=== PATIENT | female | born 1985 | race Caucasian/White ===

== ENCOUNTER 2022-01-20 12:55 | Emergency (ER) | payer BC, SELFPAY ==
[2022-01-20 13:11] VITALS: BP 140/83; PULSE 90; RESP 18; TEMP 36.9; O2SAT 99
--- NOTE | 2022-01-20 13:26 | ED.GENADULT ---
HPI - General Adult General Chief complaint: Ear Stated complaint: Ear Pain History of Present Illness HPI narrative: Patient is a 36-year-old who presents to the [facility] via POV for evaluation of left ear pain that began 2 days ago. Left ear clicking began 3 weeks ago however ear pain prompted today's visit. Denies taking OTC meds for symptoms. Nothing improves or worsen symptoms. Related Data Home Medications Medication Instructions Recorded Confirmed clindamycin HCl 300 mg capsule 300 mg DAILY 01/20/22 01/20/22 Allergies Allergy/AdvReac Type Severity Reaction Status Date / Time No Known Allergies Allergy Verified 01/20/22 13:16 Review of Systems Review of Systems: Pertinent negatives fever, chills, sweats, change in appetite, poor p.o. intake, malaise, headache, rhinorrhea, sinus problems, tinnitus, vertigo, lightheadedness, hearing loss, muffled hearing, ear drainage, nausea, vomiting, sore throat, cough, shortness of breath, lymphadenopathy, chest pain, heart palpitations, and heart murmur. PMFSH Comments I have reviewed and agree with the patient's past medical, surgical, social, and family hx as documented by the RN. There is no relevant family history pertinent to the presenting complaint. Exam Narrative: GENERAL: Well-appearing, well-nourished, and in no acute distress. HEAD: Normocephalic, atraumatic. No sinus tenderness or facial swelling appreciated. EYES: PERRLA and EOMI. No evidence of erythema, swelling, or drainage. ENT: Bilateral external ears and ear canals normal. Left TM with marked erythema. Right TM normal. No TM perforation. Nares clear, no rhinorrhea or epistaxis. Bilateral turbinates without erythema/ swelling. Mucous membranes moist and pink. Uvula is midline without erythema and swelling. Breath odor and voice normal. NECK: Supple. No Lymphadenopathy or nuchal rigidity appreciated. CHEST: Bilateral lung toney are clear to auscultation. No respiratory distress. No evidence of cough or pleuritic cp upon examination. HEART: Regular rate and rhythm. No murmur, gallop, or rub heard. EXTREMITIES: Normal range of motion. No edema. SKIN: Warm, dry, no rash. NEURO: No focal deficits. Alert and oriented x3. Course Course Level of Care: Express Care Visit Vital Signs Vital signs: Vital Signs Temperature 98.5 F 01/20/22 13:11 Pulse Rate 90 01/20/22 13:11 Respiratory Rate 18 01/20/22 13:11 Blood Pressure 140/83 01/20/22 13:11 Pulse Oximetry 99 01/20/22 13:11 Oxygen Delivery Room Air 01/20/22 13:11 Temperature 98.5 F 01/20/22 13:11 Pulse Rate 90 01/20/22 13:11 Respiratory Rate 18 01/20/22 13:11 Blood Pressure 140/83 01/20/22 13:11 Pulse Oximetry 99 01/20/22 13:11 Oxygen Delivery Room Air 01/20/22 13:11 Medical Decision Making Differential Diagnosis Differential Diagnosis: Otitis externa, barotrauma, eustachian tube dysfunction, AOM, OME, herpes zoster infection, acute mastoiditis, malignancy Vital Signs Vital Signs: Vital Signs Temperature 98.5 F 01/20/22 13:11 Pulse Rate 90 01/20/22 13:11 Respiratory Rate 18 01/20/22 13:11 Blood Pressure 140/83 01/20/22 13:11 Pulse Oximetry 99 01/20/22 13:11 Oxygen Delivery Room Air 01/20/22 13:11 Temperature 98.5 F 01/20/22 13:11 Pulse Rate 90 01/20/22 13:11 Respiratory Rate 18 01/20/22 13:11 Blood Pressure 140/83 01/20/22 13:11 Pulse Oximetry 99 01/20/22 13:11 Oxygen Delivery Room Air 01/20/22 13:11 Reviewed Critical Care Time Critical Care Time Critical Care Time: No Discharge Plan Discharge Clinical Impression: Otitis media Patient Disposition: Home, Self-Care Condition: Stable Instructions: Antibiotic Form, Ear Infection (ED) Additional Instructions: See discharge instructions for detailed information. BE SURE TO START THE CLINDAMYCIN PRESCRIBED BY YOUR PROVIDER THIS WILL TREAT YOUR EAR INFECTION
== END 2022-01-20 14:15 | disposition home or self-care (01) ==
PROVIDERS: Emergency Provider Nurse Practitioner Family; PCP Family Medicine Adolescent Medicine
DX: H66.92 Otitis media, unspecified, left ear (principal); H61.22 Impacted cerumen, left ear
CPT/HCPCS: 69209; 99212; A9270; G0463

== ENCOUNTER → 2023-01-20 08:48 | Outpatient (CLI) | payer BC, SELFPAY ==
--- NOTE | ~2023-01-20 | US_ITS ---
EXAMINATION: US pelvic complete DATE: 01/20/2023 09:19 INDICATION: Left lower quadrant abdominal pain. TECHNIQUE: Multiple transabdominal and transvaginal sonographic images of the pelvis were obtained. COMPARISON: None. FINDINGS: TRANSABDOMINAL ULTRASOUND: The uterus measures 7.7 x 3.6 x 4.5 cm. There is no free fluid in the pelvis. TRANSVAGINAL ULTRASOUND: The endometrial complex measures 6 mm in thickness. The right ovary measures 2.6 x 1.7 x 3.3 cm. The left ovary measures 2.5 x 1.8 x 3.2 cm. There is normal vascular flow in the ovaries. IMPRESSION: 1. Normal pelvis. Reviewed, dictated and finalized at location A. IMPRESSION: 1. Normal pelvis.
== END ==
PROVIDERS: PCP Family Medicine Adolescent Medicine; Visit Provider Advanced Practice Midwife
DX: R10.32 Left lower quadrant pain (principal)
CPT/HCPCS: 76856

== ENCOUNTER → 2023-08-06 10:18 | Outpatient (CLI) | payer BC, SELFPAY ==
--- NOTE | ~2023-08-06 | MM_ITS ---
EXAMINATION: MM screening caitie BI w vicky HISTORY: Screening mammogram; baseline examination. TECHNIQUE: Craniocaudal and mediolateral oblique 3-D tomosynthesis images were obtained and synthetic 2-D images were generated. Bilateral rotated lateral CC views. CAD analysis was submitted and interp reted. COMPARISON: No prior mammogram is available for comparison at this institution. BREAST PARENCHYMAL COMPOSITION: The breasts are heterogeneously dense, which may obscure small masses . FINDINGS: There is no evidence of suspicious mass, calcification, or architectural distortion to sugg est malignancy in either breast. IMPRESSION: 1. No mammographic evidence of malignancy. 2. Recommend routine screening mammography in one year. BI-RADS Category 1: Negative Reviewed, dictated and finalized at location A. DUSTER HELPER
== END ==
PROVIDERS: PCP Advanced Practice Midwife; Visit Provider Advanced Practice Midwife
DX: Z12.31 Encounter for screening mammogram for malignant neoplasm of breast (principal)
CPT/HCPCS: 77063; 77067

== ENCOUNTER 2024-08-08 10:58 | Outpatient (CLI) | payer BC, SELFPAY ==
--- NOTE | ~2024-08-08 | MM_ITS ---
EXAMINATION: MM screening caitie BI w vicky HISTORY: Screening TECHNIQUE: Craniocaudal and mediolateral oblique 3-D tomosynthesis images were obtained and synthetic 2-D images were generated. CAD analysis was submitted and interpreted. COMPARISON: 08/06/2023 BREAST PARENCHYMAL COMPOSITION: The breasts are extremely dense, which lowers the sensitivity of mamm ography. FINDINGS: Punctate calcifications are detected bilaterally, stable and benign in appearance. Stable parenchymal pattern without suspicious microcalcifications, architectural distortion, discrete masses or significant asymmetry. IMPRESSION: 1. No mammographic/tomographic evidence of malignancy. 2. Recommend routine screening mammography in one year. BI-RADS Category 2: Benign finding(s). Reviewed, dictated and finalized at location A. R CANE PLANTER
== END 2024-08-08 10:59 | disposition home or self-care (01) ==
PROVIDERS: PCP Nurse Practitioner Family; Visit Provider Obstetrics & Gynecology Gynecology
DX: Z12.31 Encounter for screening mammogram for malignant neoplasm of breast (principal)
CPT/HCPCS: 77063; 77067